=== PATIENT | female | born 1950 | race Two or more races ===

== ENCOUNTER 2020-11-16 11:19 | Outpatient (CLI) | payer OTHER | END 2020-11-16 11:41 | disposition home or self-care (01) | LOC: OFIC 805 11:19 | PROVIDERS: ATTEND Otolaryngology Otology & Neurotology | DX: T16.1XXA Foreign body in right ear, initial encounter (principal); H60.391 Other infective otitis externa, right ear; H92.01 Otalgia, right ear ==

== ENCOUNTER 2020-11-21 11:41 | Outpatient (CLI) | payer OTHER | END 2020-11-21 16:40 | disposition home or self-care (01) | LOC: OFIC 805 11:41 | PROVIDERS: ATTEND Otolaryngology | DX: H92.01 Otalgia, right ear (principal); H60.391 Other infective otitis externa, right ear; T16.1XXA Foreign body in right ear, initial encounter ==

== ENCOUNTER 2020-12-02 14:44 | Outpatient (CLI) | payer OTHER | END 2020-12-02 17:00 | disposition home or self-care (01) | LOC: OFIC 805 14:44 | PROVIDERS: ATTEND Otolaryngology Otology & Neurotology | DX: T16.1XXA Foreign body in right ear, initial encounter (principal); H60.391 Other infective otitis externa, right ear; H92.01 Otalgia, right ear ==